=== PATIENT | male | born 1995 | race African-American/Black ===

== ENCOUNTER 2020-03-14 08:08 | Emergency (ER) | payer OTHER ==
[~2020-03-14] VITALS: Ht 165.1 cm; Wt 52.2 kg
[2020-03-14] MEDS ORDERED: CLOT30SO2 TP (08:34)
[2020-03-14] MEDS ORDERED: CIPR7.5D EACH EAR (08:34)
--- NOTE | 2020-03-14 08:34 | PHYS DOC ---
Past Medical History Past Medical History: No Pertinent History Past Surgical History: No Surgical History Alcohol Use: None Drug Use: None General Adult EDM: Chief Complaint: EARACHE/EAR PAIN HPI: HPI: PPE Statement: During the patient's care I used an N95 mask, gloves, and face sheild. 24-year-old male presenting the emergency department today with bilateral otalgia and ear itching for 4 weeks or more. No alleviating or exacerbating factors. It seems to come and go. He has not seen anybody for it. He denies fevers chills nausea vomiting. Review of systems negative for chest pain shortness of breath abdominal pain vomiting fevers chills. All other review of systems negative. ED course: 24-year-old male presenting with bilateral otalgia and ear itching. On examination he has scaling minimally erythematous external auditory canal bilaterally. We will give him an antibiotic and a topical antifungal ointment for 10 days have him follow-up with in 2 to 3 days. The patient has been examined and was not found to have an emergency medical condition. The patient was then discharged home in stable condition to follow up with their primary care physician over the next 1-2 days. They were to return if their symptoms worsened or if they were concerned for any reason. They were also instructed to return to the emergency department if they were unable to get the recommended and appropriate follow-up. [id number] discharge instructions and return precautions were given. Patient's questions were answered to their satisfaction. Patient is comfortable with plan. Heart Score: Risk Factors: Risk Factors: DM, Current or recent (<one month) smoker, HTN, HLP, family history of CAD, obesity. Risk Scores: Score 0 - 3: 2.5% MACE over next 6 weeks - Discharge Home Score 4 - 6: 20.3% MACE over next 6 weeks - Admit for Clinical Observation Score 7 - 10: 72.7% MACE over next 6 weeks - Early Invasive Strategies Allergies: Allergies: Allergies Coded Allergies Type Severity Reaction Last Updated Verified No Known Drug Allergies 03/14/20 No Physical Exam: PE: Constitutional: Well developed, well nourished, no acute distress, non-toxic appearance. [] HENT: Normocephalic, atraumatic, bilateral external ears normal, oropharynx moist, no oral exudates, nose normal. EAR EXAM ABOVE Eyes: PERRLA, EOMI, conjunctiva normal, no discharge. [] Neck: Normal range of motion, no tenderness, supple, no stridor. [] Cardiovascular:Heart rate regular rhythm, no murmur [] Lungs & Thorax: Bilateral breath sounds clear to auscultation [] Abdomen: Bowel sounds normal, soft, no tenderness, no masses, no pulsatile masses. [] Skin: Warm, dry, no erythema, no rash. [] Back: No tenderness, no CVA tenderness. [] Extremities: No tenderness, no cyanosis, no clubbing, ROM intact, no edema. [] Neurologic: Alert and oriented X 3, normal motor function, normal sensory fun ction, no focal deficits noted. [] Psychologic: Affect normal, judgement normal, mood normal. [] EKG: EKG: [] Radiology/Procedures: Radiology/Procedures: [] Course & Med Decision Making: Course & Med Decision Making Pertinent Labs and Imaging studies reviewed. (See chart for details) [] Dragon Disclaimer: Dragon Disclaimer: This electronic medical record was generated, in whole or in part, using a voice recognition dictation system. Departure Departure Impression: Primary Impression: Otalgia of both ears Disposition: HOME, SELF-CARE Condition: STABLE Referrals: NO PCP (PCP) Patient Instructions: Otitis Externa, [id number] Scripts Clotrimazole (CLOTRIMAZOLE) 30 Ml Solution 30 ML TP BID for 10 Days, #1 MISC 0 Refills Prov: SONYA WALKER MD 03/14/20 Ciprofloxacin Hcl/Dexameth (CIPRODEX OTIC SUSPENSION) 7.5 Ml Drops.susp 4 DROP EACH EAR BID for 10 Days, #7.5 ML Prov: SONYA WALKER MD 03/14/20 SONYA WALKER MD March 14, 2020 08:34
[2020-03-14 08:40] VITALS: BP 132/76
== END 2020-03-14 08:40 | disposition home or self-care (01) ==
LOC: ER 08:08
DX: H92.03 Otalgia, bilateral (principal); L29.8 Other pruritus
CPT/HCPCS: 99283

== ENCOUNTER 2021-08-13 07:06 | Emergency (ER) | payer SELFPAY ==
[~2021-08-13] VITALS: Ht 165.1 cm; Wt 53.9 kg
[~2021-08-13 07:06] MED LIST: CIPR7.5D EACH EAR; CLOT30SO2 TP
[2021-08-13 07:15] VITALS: BP 128/77
[2021-08-13] MEDS ORDERED: PRED50TA PO (07:33)
--- NOTE | 2021-08-13 07:33 | ED.ADGEN ---
Past Medical History Past Medical History: No Pertinent History Past Surgical History: No Surgical History Smoking Status: Never Smoker Alcohol Use: None Drug Use: None General Adult HPI: HPI: Patient is a 26-year-old male who arrives ambulatory to the emergency department seeking evaluation of a rash that has been developing over the past 4 days. Patient reports that he has developed a pruritic rash of his arms, torso and upper thighs. The patient states despite the development of this rash the other residents of his home have not developed any similar symptoms. Patient also states that he has not experienced any fevers, nausea or shortness of air. Additionally he denies any new known exposures and does not suffer from any chronic medical conditions. He is awake, alert and nontoxic-appearing Review of Systems: Review of Systems: Constitutional: Denies fever or chills. [] Eyes: Denies change in visual acuity. [] HENT: Denies nasal congestion or sore throat. [] Respiratory: Denies cough or shortness of breath. [] Cardiovascular: Denies chest pain or edema. [] GI: Denies abdominal pain, nausea, vomiting, bloody stools or diarrhea. [] : Denies dysuria. [] Musculoskeletal: Denies back pain or joint pain. [] Integument: Reports rash with itching. [] Neurologic: Denies headache, focal weakness or sensory changes. [] Endocrine: Denies polyuria or polydipsia. [] Lymphatic: Denies swollen glands. [] Psychiatric: Denies depression or anxiety. [] Family History: Family History: Noncontributory Allergies: Allergies: Allergies Coded Allergies Type Severity Reaction Last Updated Verified No Known Drug Allergies 03/14/20 No Physical Exam: PE: Constitutional: Well developed, well nourished, no acute distress, non-toxic appearance. [] HENT: Normocephalic, atraumatic, bilateral external ears normal, oropharynx moist, no oral exudates, nose normal. [] Eyes: PERRLA, EOMI, conjunctiva normal, no discharge. [] Neck: Normal range of motion, no tenderness, supple, no stridor. [] Cardiovascular:Heart rate regular rhythm, no murmur [] Lungs & Thorax: Bilateral breath sounds clear to auscultation [] Abdomen: Bowel sounds normal, soft, no tenderness, no masses, no pulsatile masses. [] Skin: Patient does have multiple lesions of his skin which appear to represent 2 different types morphology. Plaque-like lesions can be seen of the upper extremities as well as the torso which appear to be consistent with a likely fungal source. These areas are not bleeding nor are they draining. They are nontender upon palpation. The other lesions which are far more numerous appear to be ulcerations in various stages of healing. They do appear to be papular and may represent viral morphology versus a potential infestation. These lesions as well are dry and nontender upon palpation. They do lencho and do not represent any cellulitic or petechial process. Back: No tenderness, no CVA tenderness. [] Extremities: No tenderness, no cyanosis, no clubbing, ROM intact, no edema. [] Neurologic: Alert and oriented X 3, normal motor function, normal sensory function, no focal deficits noted. [] Psychologic: Affect normal, judgement normal, mood normal. [] Current Patient Data: Vital Signs: Vital Signs Date Time Temp Pulse Resp B/P (MAP) Pulse Ox O2 Delivery O2 Flow Rate FiO2 08/13/21 07:15 97.9 89 16 128/77 (94) 96 Room Air 97.9 EKG: EKG: [] Heart Score: C/O Chest Pain: No Risk Factors: Risk Factors: DM, Current or recent (<one month) smoker, HTN, HLP, family history of CAD, obesity. Risk Scores: Score 0 - 3: 2.5% MACE over next 6 weeks - Discharge Home Score 4 - 6: 20.3% MACE over next 6 weeks - Admit for Clinical Observation Score 7 - 10: 72.7% MACE over next 6 weeks - Early Invasive Strategies Radiology/Procedures: Radiology/Procedures: [] Course & Med Decision Making: Course & Med Decision Making Pertinent Labs and Imaging studies reviewed. (See chart for details). The patient remains awake, alert and in no acute distress. I have elected to provide the patient with steroids in order to help in the healing of this rash. I have communicated the patient that if this is a viral process this will likely resolve without intervention. With respect to what I believed to be a fungal rash (ringworm), I have asked the patient to follow-up with his primary care physician should this not resolve in the next several days for further evaluation and potential dermatological consulting. Should the patient develop any new fevers, shortness of air or pain associated with his rash, I advised that he return to the emergency department. The patient understands and has agreed to do so. He is nontoxic-appearing and stable for discharge [] Kadi Disclaimer: Kadi Disclaimer: This electronic medical record was generated, in whole or in part, using a voice recognition dictation system. Departure Departure Impression: Primary Impression: Rash and nonspecific skin eruption Disposition: HOME / SELF CARE / HOMELESS Condition: STABLE Referrals: HERMINIA MEADOWS MD (PCP) Patient Instructions: Body Ringworm, Rash Scripts Prednisone (PREDNISONE) 50 Mg Tablet 1 TAB PO DAILY for 5 Days, #5 TAB Prov: PHILIP GU DO 08/13/21 PHILIP GU DO Aug 13, 2021 07:33
== END 2021-08-13 07:38 | disposition home or self-care (01) ==
LOC: ER 07:06
DX: R21 Rash and other nonspecific skin eruption (principal); L29.8 Other pruritus
CPT/HCPCS: 99283

== ENCOUNTER 2022-02-18 08:52 | Emergency (ER) | payer OTHER ==
[~2022-02-18] VITALS: Ht 165.1 cm; Wt 55.0 kg
[~2022-02-18 08:52] MED LIST changes: +PRED50TA PO
[2022-02-18 09:01] VITALS: BP 150/75
[2022-02-18 09:52] LABS: INFLUENZA A PATIENT POSITIVE (NEGATIVE); INFLUENZA B PATIENT NEGATIVE (NEGATIVE)
--- NOTE | 2022-02-18 09:53 | PHYS DOC ---
Past Medical History Past Medical History: No Pertinent History Past Surgical History: No Surgical History Smoking Status: Never Smoker Alcohol Use: None Drug Use: None General Adult EDM: Chief Complaint: FLU SYMPTOM HPI: HPI: Patient is a 26-year-old male who presents today with cough, body aches, and fever and chills since Tuesday. Patient states that he has been having flulike symptoms since Tuesday, he states he is taken 2 home COVID test which have both been negative he presents today because his symptoms has not improved. Patient states his temperature at home was 102.2, he said he took Tylenol for that currently his temperature is 99.6. Review of Systems: Review of Systems: Constitutional: fever or chills. [] Eyes: Denies change in visual acuity. [] HENT: nasal congestion, denies sore throat. [] Respiratory: Denies cough or shortness of breath. [] Cardiovascular: Denies chest pain or edema. [] GI: Denies abdominal pain, nausea, vomiting, bloody stools or diarrhea. [] : Denies dysuria. [] Musculoskeletal: body aches,Denies back pain or joint pain. [] Integument: Denies rash. [] Neurologic: Denies headache focal weakness or sensory changes. [] Endocrine: Denies polyuria or polydipsia. [] Lymphatic: Denies swollen glands. [] Psychiatric: Denies depression or anxiety. [] Heart Score: C/O Chest Pain: No Risk Factors: Risk Factors: DM, Current or recent (<one month) smoker, HTN, HLP, family history of CAD, obesity. Risk Scores: Score 0 - 3: 2.5% MACE over next 6 weeks - Discharge Home Score 4 - 6: 20.3% MACE over next 6 weeks - Admit for Clinical Observation Score 7 - 10: 72.7% MACE over next 6 weeks - Early Invasive Strategies Allergies: Allergies: Allergies Coded Allergies Type Severity Reaction Last Updated Verified No Known Drug Allergies 03/14/20 No Physical Exam: PE: Constitutional: Well developed, well nourished, no acute distress, non-toxic appearance. [] HENT: Normocephalic, atraumatic, bilateral external ears normal, oropharynx moist, no oral exudates, nose normal. [] Eyes: PERRLA, EOMI, conjunctiva normal, no discharge. [] Neck: Normal range of motion, no tenderness, supple, no stridor. [] Cardiovascular:Heart rate regular rhythm, no murmur [] Lungs & Thorax: Bilateral breath sounds clear to auscultation [] Abdomen: Bowel sounds normal, soft, no tenderness, no masses, no pulsatile masses. [] Skin: Warm, dry, no erythema, no rash. [] Back: No tenderness, no CVA tenderness. [] Extremities: No tenderness, no cyanosis, no clubbing, ROM intact, no edema. [] Neurologic: Alert and oriented X 3, normal motor function, normal sensory function, no focal deficits noted. [] Psychologic: Affect normal, judgement normal, mood normal. [] Current Patient Data: Labs: Laboratory Tests Test 02/18/22 09:20 Influenza Type A Antigen Positive Influenza Type B Antigen Negative SARS-CoV-2 Antigen (Rapid) Negative Vital Signs: Vital Signs Date Time Temp Pulse Resp B/P (MAP) Pulse Ox O2 Delivery O2 Flow Rate FiO2 02/18/22 09:01 99.6 94 18 150/75 (100) 98 Room Air 99.6 EKG: EKG: [] Radiology/Procedures: Radiology/Procedures: [REASON: cough PROCEDURE: CHEST AP ONLY Exam Date: 02/18/2022 9:51 AM XR CHEST 1V Indication: Reason: cough / Spl. Instructions: / History: . FINDINGS/ IMPRESSION: The cardiac silhouette and pulmonary vasculature are within normal limits. There is no focal consolidation, pleural effusion or pneumothorax. The visualized osseous structures are intact. Electronically signed by: John Fuller MD (02/18/2022 10:04 AM) [id number] ] Course & Med Decision Making: Course & Med Decision Making Pertinent Labs and Imaging studies reviewed. (See chart for details) [1015 reviewed radiological and laboratory results with patient did inform them that they were positive for influenza, and her chest x-ray was negative for any acute processes at this time. Patient instructed to take Tylenol and/or ibuprofen as labeled directed for fever and pain, increase by mouth fluids, and to stay at home until you are fever free without medications for 24 hours. Patient will also be given a work excuse. Kadi Disclaimer: Kadi Disclaimer: This electronic medical record was generated, in whole or in part, using a voice recognition dictation system. Departure Departure Impression: Primary Impression: Influenza A Disposition: HOME / SELF CARE / HOMELESS Condition: STABLE Referrals: HERMINIA MEADOWS MD (PCP) Patient Instructions: Influenza A (H1N1) Additional Instructions: Tylenol and/or ibuprofen as needed for pain Increase by mouth fluids Return here to the emergency department for increased shortness of breath, inability to keep any by mouth fluids down, or bluing of your lips or face Follow-up with Dr. Friend if your symptoms of not improved in 7 to 10 days. MARCIAL HOPKINS [employer] Feb 18, 2022 09:53
--- NOTE | 2022-02-18 10:07 | RAD ---
Exam Date: 02/18/2022 9:51 AM XR CHEST 1V Indication: Reason: cough / Spl. Instructions: / History: . FINDINGS/ IMPRESSION: The cardiac silhouette and pulmonary vasculature are within normal limits. There is no focal consolidation, pleural effusion or pneumothorax. The visualized osseous structures are intact. Electronically signed by: John Fuller MD (02/18/2022 10:04 AM) [id number]
== END 2022-02-18 10:35 | disposition home or self-care (01) ==
LOC: ER 08:52
DX: J10.1 Influenza due to other identified influenza virus with other respiratory manifestations (principal); Z20.822 Contact with and (suspected) exposure to COVID-19
CPT/HCPCS: 71045; 87428; 99284